=== PATIENT | female | born 1965 | race Caucasian/White ===

== ENCOUNTER 2019-08-14 14:30 | Emergency (ER) | payer SELFPAY | END 2019-08-14 15:22 | disposition home or self-care (01) | LOC: ERS 14:30 | DX: N12 Tubulo-interstitial nephritis, not specified as acute or chronic (principal); F17.210 Nicotine dependence, cigarettes, uncomplicated; Z86.711 Personal history of pulmonary embolism | CPT/HCPCS: 99284 ==